=== PATIENT | female | born 1990 | race Caucasian/White ===

== ENCOUNTER 2019-06-18 18:22 | Emergency (ER) | payer SELFPAY ==
[~2019-06-18] VITALS: Ht 165.1 cm; Wt 65.8 kg
--- NOTE | 2019-06-18 18:26 | NUR ---
PT AMBULATED TO BED 11.
[2019-06-18 18:29] VITALS: BP 123/79
--- NOTE | 2019-06-18 19:19 | NUR ---
29 Y/O F PRESENTS TO ER C/O OF RASH X 3 WEEKS. PT HAS RASH TO CHEST, ABDOMEN, AND BACK AND UPPER EXTREMITIES. PT DENIES CHANGES IN ENVIRONMENT, LAUNDRY DETERGENT, SOAPS, FRAGRANCES, ETC. PT TRIED TAKING ONE DOSE OF BENADRYL HCL 25MG WHEN RASH FIRST STARTED WITHOUT ANY RELIEF. PAIN 0/10, JUST ITCHY. NKA. MED HX: ANEURSYM AND STROKE IN 2006. HOB ELEVATED, BED RAIL UP X1, BED IN LOWEST POSITION. WAITING FOR ERMD TO EVALUATE PT.
[2019-06-18] MEDS ORDERED: DEXAMETHASONE 10 MG/ML VIAL IM ONE (19:25)
[2019-06-18 19:55] VITALS: BP 123/79
--- NOTE | 2019-06-18 19:55 | NUR ---
Patient discharged with v/s stable. Written and verbal after care instructions given and explained. Pt encouraged to take medications as prescribed. Pt educated that rash may still be present for 4-8 weeks. Patient alert, oriented and verbalized understanding of instructions. Ambulatory with steady gait. All questions addressed prior to discharge. ID band removed. Patient advised to follow up with PMD. Rx of ATARAX 50MG AND TRIAMCINOLONE ACETONIDE 0.1% TOPICAL OINTMENT WAS given. Patient educated on indication of medication including possible reaction and side effects. Opportunity to ask questions provided and answered.
== END 2019-06-18 19:55 | disposition home or self-care (01) ==
LOC: MED 18:22
DX: L42 Pityriasis rosea (principal)
CPT/HCPCS: 96372; 99283; J1100